=== PATIENT | female | born 1940 | race Caucasian/White ===

== ENCOUNTER 2020-03-24 13:17 | Inpatient (IN) | payer MEDICARE, OTHER ==
[~2020-03-24] VITALS: Ht 170.2 cm; Wt 79.0 kg
[~2020-03-24 13:17] MED LIST: ASPIRIN 81M81 MG/TA2 PO; LANTUS100 U/ML SQ; LEVEMIR100 U/ML SQ; MAG-AL LIQUID 230 ML PO; MELATIN 3 MG-11 TAB PO; NORCO 325 MG-51 TAB PO; NOVOLOG 100U100 U/M1 SQ; TYLENOL 325MG325 MG PO; ULTRAM 50MG TAB50 MG PO
--- NOTE | 2020-03-24 14:50 | NUR ---
Admitted to [facility] from acute care. Left arm in sling. Left hand edematous. Denied pain. Left arm elevated on pillow.
[2020-03-24 16:57] VITALS: BP 130/56; PULSE 73; TEMP 97.8
--- NOTE | 2020-03-24 18:30 | NUR ---
No complaints. O2 on per nasal cannula.
--- NOTE | 2020-03-24 19:26 | NUR ---
PATIENT RESTING IN BED DURING CHANGE OF SHIFT REPORT RECEIVED FROM DAY SHIFT NURSE. BED ALARM ON. PATIENT WANTING TO HAVE GOWN CHANGE LATER, AGREED TO TAKE TYLENOL WITH BED TIME MEDS. NO OTHER NEEDS REPORTED.
--- NOTE | 2020-03-24 20:00 | NUR ---
DECREASED ROM/STRENGTH LUE R/T SX, KAROL DRSG INTACT. PATIENT UP WITH ASST WITH GAIT BELT/DAYSI WALKER TO R HAND, MOD TO MAX ASSIST WITH SIT TO STAND REPOSITIONING. OBSERVED GAIT SLOW WITH SOME LLE DELAY DUE TO PAIN WITH MOVEMENT/FX L PELVIS. PATIENT REPORTS FATIGUE WITH EXERTION AT THIS TIME. BED ALARM ON WHEN IN BED.
--- NOTE | 2020-03-25 01:27 | NUR ---
CONFIRMED WITH SAM ODOM ORDERS FOR INSULINS AND VTE PROPHYLAXIS, ORDER CHANGES PUT IN BY PROVIDER WITH NO ADDITIONAL PATIENT RELATED CONCERNS REPORTED TO PROVIDER.
--- NOTE | 2020-03-25 03:44 | NUR ---
PATIENT SLEEPING WITH EVEN NONLABORED BREATHING OBSERVED. BED ALARM ON.
[2020-03-25 05:14] VITALS: BP 138/37; PULSE 73; TEMP 98.9
--- NOTE | 2020-03-25 07:14 | NUR ---
PATIENT IN BED EATING BREAKFAST DURING CHANGE OF SHIFT REPORT GIVEN TO DAY SHIFT NURSEEVON. BED ALARM ON.
--- NOTE | 2020-03-25 14:16 | NUR ---
SW met with patient at her bedside. Patient reported that she lives in [place] alone, and that her care support is her son Luh, who lives in [place]. She reported that she did not know his phone number and that it is in her file. There was no phone number listed for her son in the computer, however may be in her paper file. There is a listing for her Gonzalo Rutherford [phone]. Patient rpeorted that she uses a walker and a wheelchair and that her PCP is Dr. Tiwari, with an upcoming appointment on March 28, until her accident. Patient reported that she gets her medications from [facility], and that it was at the hospital where she fell. Patient may be interest in home health. SW will follow up to determine course of action.
[2020-03-25 16:04] VITALS: BP 146/60; PULSE 70; TEMP 98.8
--- NOTE | 2020-03-25 18:23 | NUR ---
CHANGE OF SHIFT REPORT RECEIVED FROM DAY SHIFT NURSE. BED ALARM ON.
--- NOTE | 2020-03-25 19:41 | NUR ---
PATIENT STATED SHE HAD LARGE BM PRIOR TO GOING TO PT DEPT.
--- NOTE | 2020-03-25 19:50 | NUR ---
DECREASED ROM/STRENGTH L ELBOW/LUE D/T SURGERY, IN SPLINT/KAROL DRSG THAT IS INTACT. LUE IN SLING, DENIES NUMBNESS/TINGLING TO EXTREMITIES. REPORT NO PAIN AT THIS TIME. ALSO REPORT STILL HAS PAIN TO INNER UPPER L THIGH ARE WITH WEIGHT BEARING MOVEMENT.
--- NOTE | 2020-03-26 02:41 | NUR ---
PATIENT SLEEPING, OBSERVED BREATHING EVEN AND NONLABORED, 02 CONTINUES PER NC, BED ALARM ON.
[2020-03-26 05:20] VITALS: BP 143/49; PULSE 66; TEMP 98
[2020-03-26 06:58] LABS: BASO # 0.1 (0.0-0.2); BASO % 0.4 % (0.0-2.0); EOS # 0.3 (0.0-0.7); EOS % 2.4 % (0-4.0); GRAN # 8.1 (1.4-6.5); GRAN % 68.7 % (42.2-75.2); HEMOGLOBIN 10.7 g/dl (12.5-16.0); LYMPH # 2.3 (1.2-3.4); LYMPH % 19.7 % (20.0-51.0); MEAN CELL VOLUME 88 fl (80.0-100.0); MEAN CORPUSCULAR HEMOGLOBIN 29 pg (27.0-31.0); MEAN CORPUSCULAR HGB CONC 33 g/dl (33.0-37.0); MEAN PLATELET VOLUME 9.7 fl (7.4-10.4); MONO % 8.5 % (1.7-9.3); PLATELET COUNT 270 K/mm3 (130-400); RED BLOOD COUNT 3.73 M/mm3 (4.10-5.30); REDCELL DISTRIBUTION WIDTH-CV 12.8 % (11.5-14.5)
[2020-03-26 07:00] LABS: HEMATOCRIT 32.8 % (37.0-47.0)
[2020-03-26 07:14] LABS: CREATININE, serum 0.69 (0.52-1.25); POTASSIUM 4.4 mmol/L (3.4-5.0)
--- NOTE | 2020-03-26 07:40 | NUR ---
CHANGE OF SHIFT REPORT GIVEN TO DAY SHIFT NURSES, ARSLAN. BED ALARM ON. O2 CONTINUES PER NC.
--- NOTE | 2020-03-26 14:56 | NUR ---
Cashier Host/Hostess followed up with patient from the weekend. Patient reports things went okay. SW reviewed IM form with patient who verbalized understanding and gave SW permission to sign on her behalf. SW placed form in chart and provided copy to patient. SW will continue to follow.
[2020-03-26 16:11] VITALS: BP 124/44; PULSE 76; TEMP 97.9
--- NOTE | 2020-03-26 18:33 | NUR ---
PATIENT RECEIVES SCHEDULED TRAMADOL AND DID WELL WITH THERAPY TODAY. IN THE AFTERNOON PATIENT REQUESTED PRN NORCO FOR PAIN OF 10/10 WHILE WALKING. THE MEDICATION WAS EFFECTIVE FOR PATIENT'S PAIN. PATIENT DOING WELL, IN BED RESTING AT BEDSIDE SHIFT REPORT.
--- NOTE | 2020-03-26 19:28 | NUR ---
Received report from Bree RN's. Pt currently lying in bed and has her call light within reach. Pt bed is also in lowest position.
--- NOTE | 2020-03-26 23:42 | NUR ---
Pt has ambulated to the restroom once . Pt ambulated well, she took it really slow. Pt was a one assist with the gait belt and walker. Pt has no complained of any pain as she transferred. Pt is currently back in bed and has her call ligth within reach and her bed is in lowest position and her alarm is on . She did have some sugar free pudding and some crackers before bed.
[2020-03-27 04:33] VITALS: BP 134/47; PULSE 70; TEMP 98.5
--- NOTE | 2020-03-27 07:21 | NUR ---
Report was given to Deloris RN's. Pt was sitting up in bed and getting ready to eat breakfast. Pt blood glucose level this morning was at 76 so pt was given leena crackers and orange juice until her breakfast tray came. Pt has her call light within reach and her bed is in lowest position.
--- NOTE | 2020-03-27 09:07 | NUR ---
Patient resting in bed, eating breakfast and denies pain this am. Did help patient to restroom, steady gait and no problems with bowel or bladder.
--- NOTE | 2020-03-27 13:21 | NUR ---
Admission QIM scores were reviewed by the team. Code of 4 chosen for oral hygiene was determined by team discussion to be the most usual performance before interventions for this patient during the assessment period. Code of 4 chosen for toilet hygiene was determined by team discussion to be the most usual performance for this patient during the assessment period. Code of 3 chosen for toilet transfers was determined by team discussion to be the most usual performance for this patient during the assessment period. Code of 5 chosen for rolling left to right was determined by team discussion to be the most usual performance for this patient during the assessment period. Code of 3 chosen for sit to lying was determined by team discussion to be the most usual performance for this patient during the assessment period. Code of 3 chosen for lying to sitting on side of bed was determined by team discussion to be the most usual performance for this patient during the assessment period. Code of 3 for chair/bed to chair transfers was determined by team discussion to be the most usual performance for this patient during the assessment period. Code of 88 chosen for walk 150 feet was determined by team discussion to be the most usual performance for this patient during the assessment period.--Ana Story, PD
[2020-03-27 17:47] VITALS: BP 173/58; PULSE 77; TEMP 99.2
--- NOTE | 2020-03-27 19:11 | NUR ---
PATIENT REQUESTING PAIN MEDICINE AT BEDSIDE SHIFT REPORT. EVELYN IS GETTING THIS FOR HER. BED ALARM ON, BED IN LOW, AND CALL LIGHT WITHIN REACH AT REPORT.
--- NOTE | 2020-03-27 19:40 | NUR ---
CHANGE OF SHIFT REPORT RECEIVED FROM DAY SHIFT NURSE. BED ALARM ON.
--- NOTE | 2020-03-27 20:00 | NUR ---
DECREASED ROM/STRENGTH TO L ELBOW D/T SURGERY AND KAROL/SPLINT DRSG. ABLE TO WIGGLE L HAND FINGERS ON COMMAND. DENIES NUMBNESS/TINGLING TO BUE AT THIS TIME. ALYCE HAND MOLD STAMPER AND REPAIRER EQUAL, PATIENT ENCOURAGED TO CONTINUE L HAND EXERCISES. SLING TO LUE IN PLACE, PATIENT CONTINUES TO KEEP LUE ELEVATED ABOVE HEART LEVEL AT ALL TIMES. BED ALARM ON.
[2020-03-28 05:56] VITALS: BP 124/89; PULSE 65; TEMP 98.4
--- NOTE | 2020-03-28 07:24 | NUR ---
CHANGE OF SHIFT REPORT GIVEN TO DAY SHIFT NURSEARLETTE. BED ALARM ON.
--- NOTE | 2020-03-28 07:50 | NUR ---
Patient resting in bed, call light in reach and bed alarm set. Patient denies questions at this time.
--- NOTE | 2020-03-28 09:09 | NUR ---
Patient returning from PT and is a SBA with using walker and gait belt. Patient reports pain meds are effective. Will continue to monitor.
--- NOTE | 2020-03-28 11:18 | NUR ---
Patient was taken off oxygen this morning to go to therapy. She has been off it since 8:15 this morning and her current O2 is now 98% on Room Air. Will report to Dr. Iniguez this afternoon.
--- NOTE | 2020-03-28 16:09 | NUR ---
Rn Teacher contacted patient's son, Carmine to schedule family meeting for 03/30/20 @ 1300. SW will contact Carmine by phone at time of meeting. SW met with patient to review and provide copy of team conference notes. SW also provided date and time of family meeting. Patient is tearful and states she is so happy that her son made transportation arrangements for her to get home. CED advised patient that she spoke with [facility] and was advised that they can deliver medications to patient's home. CED will follow up again with [facility] closer to discharge. SW to also follow up with patient on referral to Home Health, which is being recommended. Patient reports she will be agreeable to services at discharge. SW will continue to follow.
[2020-03-28 17:55] VITALS: BP 129/50; PULSE 81; TEMP 98
--- NOTE | 2020-03-28 19:56 | NUR ---
Patient attended all therapies today, was given pain meds this morning that were effective prior to therapies. Patient was off oxygen the entire day with lowest O2 reading 90% with RT this afternoon. Patient was independent with her meals. Patient's bruise to her left inner thigh continues to improve. Reported off to night nurse.
--- NOTE | 2020-03-28 20:00 | NUR ---
DECREASED ROM/STRENGTH TO L ELBOW D/T ELBOW SURGERY. DENIES NUMBNESS/TINGLING TO EXTREMITIES AT THIS TIME. DENIES CHEST PAIN/SHORTNESS OF BREATHE AT THIS TIME. BED ALARM ON.
[2020-03-29 04:31] VITALS: BP 144/41; PULSE 63; TEMP 97.9
--- NOTE | 2020-03-29 06:58 | NUR ---
CHANGE OF SHIFT REPORT GIVEN TO DAY SHIFT NURSEJOSE A. BED ALARM ON.
--- NOTE | 2020-03-29 08:24 | NUR ---
Assessment completed, alert/oriented, vital signs have been stable, patient left arm/ elbow discomfort is minimal and scheduled Ultram given, icision site dressing is C/D/I and looks good, encouraging LUE ROM and exercise, some small bruises and abrasions noted from fall but no serious skin issues noted, heart RRR/ distal pulses are palapble, Lungs CTA, patient has eaten breakfast and is now working with PT
[2020-03-29 17:33] VITALS: BP 128/43; PULSE 79; TEMP 98.2
--- NOTE | 2020-03-29 21:00 | NUR ---
PT RESTING IN BED. CHEERFUL MOOD. A&O X4. GOOD SENSATION AND MOVEMENT OF LT HAND. ELEVATED ON PILLOW. DENIES NEED FOR PAIN MEDICATION. RT REPORTED O2 AT 1L NEEDED FOR O2 SAT 88%. ENC I.S. USE. NEEDS MUCH CUING FOR PROPER USE. REFUSES SCD'S . ACCUCHECK 171. SEE MAR FOR SSI. CALL LIGHT IN REACH. BED ALARM SET.
--- NOTE | 2020-03-30 04:40 | NUR ---
ASSISTED TO BR W/QUAD CANE. VOIDED W/O DIFFICULTY. BACK TO BED. PT REPORTS FEELING HYPOGLYCEMIC. CHECKED ACCUCHECK-63. PROVIDED OJ. WILL CONTINUE TO MONITOR.
--- NOTE | 2020-03-30 05:00 | NUR ---
ACCUCHECK NOW 92. NO FURTHER COMPLAINTS.
[2020-03-30 05:03] VITALS: BP 120/41; PULSE 62; TEMP 98
--- NOTE | 2020-03-30 08:31 | NUR ---
HELPED PATIENT TO THE RESTROOM WITH MORNING ASSESS. PATIENT C/O PAIN 3/10 AND SCHEDULED TRAMADOL WAS GIVEN. PATIENT ATE BREAKFAST AND IS RESTING IN BED AWATING THERAPY.
--- NOTE | 2020-03-30 10:50 | NUR ---
GEOFFREY WITH OT MADE US AWARE THAT THE CAST IS FITTING MORE LOOSELY DUE TO A DECREASE IN SWELLING WITH THE PATIENT'S LEFT UPPER EXTREMITIY. DR. JAVED'S OFFICE WAS NOTIFIED AND AWAITING A RETURN CALL FOR CHANGES.
--- NOTE | 2020-03-30 11:11 | NUR ---
DR. JAVED'S NURSE CALLED BACK WITH DIRECTIONS TO TIGHTEN THE KAROL WRAP AROUND THE PLASTER ON RAUL'S ARM.
--- NOTE | 2020-03-30 13:14 | NUR ---
Fertilizer Loader attended a family meeting for the patient. Present were Ana, IPR Director, PT/OT and the patient's son, Carmine was on speaker phone. Ana began with the purpose of the meeting. PT/OT discussed patient progress. The patient's anticipated discharge date is 04/04. The patient is to return home with [facility]. CED presented Medicare.gov's list of [employer] in the [place] area. The patient would like the weekend to make a choice. All questions and concerns were addressed. Will continue to monitor.
[2020-03-30 17:09] VITALS: BP 128/46; PULSE 70; TEMP 98.4
--- NOTE | 2020-03-30 17:45 | NUR ---
REWRAPPED PATIENT'S KAROL WRAP OVER THIER PLASTER CAST. PATIENT DID C/O PAIN BEFORE DINNER AND RECEIVED A PRN NORCO. PATIENT DOING WELL NOW AND ENJOYING DINNER IN BED. BED IN LOW, BED ALARM ON, CALL LIGHT WITHIN REACH.
--- NOTE | 2020-03-30 22:03 | NUR ---
PT CHEERFUL AND ORIENTED X4. O2 1L NC AT HS FOR LOW SAT. ENC USE OF I.S. LT ARM ELEVATED ON PILLOW. GOOD SENSATION AND WARMTH. MOVES FINGERS WELL. SEE MAR FOR PAIN MED GIVEN. PT C/O SOME DISCOMFORT AFTER KAROL WRAP WAS REDONE.
--- NOTE | 2020-03-31 00:20 | NUR ---
PT FEELING HYPOGLYCEMIC. ACCUCHECK 57. GAVE OJ X2. HAD LUAN CRACKERS AND PEANUTBUTTER FOR HS SNACK EARLIER TONIGHT. WILL CONTINUE TO MONITOR.
--- NOTE | 2020-03-31 02:00 | NUR ---
PT C/O LT ARM PAIN FROM TIGHT KAROL WRAP. LOOSENED THE KAROL WRAP. SEE MAR FOR PAIN MEDICATION GIVEN. PT DECLINED ICE PACK.
[2020-03-31 06:03] VITALS: BP 143/51; PULSE 62; TEMP 98.2
--- NOTE | 2020-03-31 09:00 | NUR ---
UPON ENTRY TO THE ROOM THE PATIENT IS STANDING WITH RECYCLING OPERATOR GETTING READY FOR THERAPY. PATIENT IS RATING HER LEFT ARM PAIN A 3/10 ON A 0-10 SCALE AND DESCRIBES IT A CONSTANT BURNING PAIN. PATIENT GIVEN SCHEDULED PAIN MEDICATION WITH MORNING MEDS. SHIFT ASSESSMENT COMPLETE AT THIS TIME. LUE SPLINT/KAROL WRAP DRESSING IS CD&I. SLING IN PLACE. CAP REFILL <3 SECONDS. CMS INTACT. NO SWELLING TO HAND NOTED. PATIENT STATES THAT SHE HAS A HEAT RASH ON HER BACK. PIMPLE LIKE BUMPS NOTED OVER LEFT SIDE OF BACK. SKIN INTACT. LOTION APPLIED PER PATIENT REQUEST. CALL LIGHT WITHIN REACH. PATIENT DENIES ANY OTHER NEEDS AT THIS TIME.
[2020-03-31 17:32] VITALS: BP 152/42; PULSE 72; TEMP 98.1
--- NOTE | 2020-03-31 21:00 | NUR ---
PT RESTING IN BED. WATCHING TV. LT ARM SPLINT. FINGERS WARM TO TOUCH. DENIES NUMBNESS OR TINGLING. SEE MAR FOR PAIN MEDS GIVEN. REFUSED ICE PACK. ASSIST UP TO BR WITH QUAD CANE. VOIDING W/O DIFFICULTY. CALL LIGHT IN REACH. BED ALARM SET.
--- NOTE | 2020-04-01 05:19 | NUR ---
PT SLEEPING NOW. HAVING PAIN ISSUES ON LT ELBOW WHEN SPLINT IS POSSIBLY RUBBING. GAVE PAIN MED EARLIER.SLING IN PLACE AND ARM ELEVATED ON PILLOWS
[2020-04-01 05:37] VITALS: BP 155/55; PULSE 66; TEMP 98
--- NOTE | 2020-04-01 08:29 | NUR ---
PATIENT SLEEPING IN BED AT BEDSIDE SHIFT REPORT. PATIENT'S BLOOD SUGAR WAS RECHECKED THIS AM AND WAS HIGH SO SHE RECEIVED BOTH DOSES OF NOVOLOG. DISCUSSED WITH PATIENT ABOUT SAVING A BANANA FOR SNACK IN THE ADRIANE TO AVOID LOW BLOOD SUGARS IN THE AM.
[2020-04-01 17:25] VITALS: BP 124/43; PULSE 77; TEMP 98.4
--- NOTE | 2020-04-01 19:02 | NUR ---
PATIENT TOOK PRN TYLENOL THIS AFTERNOON. WALKED SEVERAL LAPS AROUND WITH THIS NURSE. BLOOD SUGARS HAVE BEEN HIGH AND LOW TODAY. DISCUSSED SNACK FOR HS WITH ONCOMING NURSE. PATIENT RESTING IN BED AT TIME OF BEDSIDE SHIFT REPORT. BED IN LOW, CALL LIGHT WITHIN REACH, AND BED ALARM ON.
--- NOTE | 2020-04-01 21:00 | NUR ---
PT RESTING IN BED. HUMOROUS. ORIENTED X4. LT ARM ELEVATED ON PILLOW. NO NUMBNESS OR TINGLING. MOVES FINGERS FREELY. DENIES NEEDS AT THIS TIME.
[2020-04-02 06:16] VITALS: BP 150/45; PULSE 64; TEMP 97.7
--- NOTE | 2020-04-02 08:31 | NUR ---
PATIENT RESTINGIN BED AT BEDSIDE SHIFT REPORT. C/O INCREASING PAIN IN LEFT ELBOW AND A SENSATION OF COLD WATER RUNNING ON ELBOW. SCHEDULED TRAMADOL AND PRN TYLENOL WERE GIVEN FOR PAIN BEFORE THERAPY.
--- NOTE | 2020-04-02 08:56 | NUR ---
Initial visit; Patient thanked Mangle Catcher for looking in on her and offering God's blessings and keeping her in Mangle Catcher's prayers.
--- NOTE | 2020-04-02 09:47 | NUR ---
PATIENT C/O DIZZINESS, BLOOD PRESSURE WAS LOW 108/53. DR. SONG UPDATED NO ODERS AT THIS TIME. WILL CONTINUE TO MONITOR. BLOOD SUGAR 237 AT TIME OF ASSES..
[2020-04-02 09:51] VITALS: BP 108/53
[2020-04-02 10:48] LABS: BASO % 0.4 % (0.0-2.0); EOS # 0.2 (0.0-0.7); EOS % 2.3 % (0-4.0); GRAN # 6.5 (1.4-6.5); GRAN % 67.1 % (42.2-75.2); HEMATOCRIT 35.1 % (37.0-47.0); HEMOGLOBIN 11.1 g/dl (12.5-16.0); LYMPH # 2.1 (1.2-3.4); LYMPH % 21.5 % (20.0-51.0); MEAN CELL VOLUME 90 fl (80.0-100.0); MEAN CORPUSCULAR HEMOGLOBIN 28 pg (27.0-31.0); MEAN CORPUSCULAR HGB CONC 32 g/dl (33.0-37.0); MEAN PLATELET VOLUME 9.2 fl (7.4-10.4); MONO # 0.8 (0.1-0.6); MONO % 8.4 % (1.7-9.3); PLATELET COUNT 420 K/mm3 (130-400); RED BLOOD COUNT 3.91 M/mm3 (4.10-5.30); REDCELL DISTRIBUTION WIDTH-CV 12.9 % (11.5-14.5)
[2020-04-02 10:56] LABS: CALCIUM 9.2 mg/dL (8.4-10.2); CREATININE, serum 0.93 (0.52-1.25); POTASSIUM 4.6 mmol/L (3.4-5.0)
--- NOTE | 2020-04-02 12:54 | NUR ---
DR. JAVED'S OFFICE RETURNED CALL ABOUT INCREASED PAIN AND SENSATION OF DRIPPING WATER. WAS TOLD LONG THEIR IS NO DRAINAGE ON THE SPLINT OR WRAP, NO SWELLING, TINGLING/NUMBNESS, DISCOLORATION OR OTHER PROBLEMS TO CONTINUE TO MONITOR. PATIENT WILL F/U WITH DR. JAVED ON 04/04 AT 2:00PM.
--- NOTE | 2020-04-02 14:32 | NUR ---
Order Builder Loader followed up with patient to discuss discharge plan. Patient selected [facility] and would also like pierce walker order sent to [facility]. CED faxed referral to Noa at [facility] who will review the referral and follow up with CED. CED faxed order for Pierce Walker to [facility] and was advised they could either deliver walker or patient could pick it up. CED will follow up with patient on preference. Patient expressed some concern about picking up her vehicle from [facility]. Patient states she would like SW to contact [facility] to let them know when she will picked edge sewing machine operator vehicle so they don't think it's being stolen. CED will follow up with patient tomorrow to confirm when she will have the vehicle picked up.
[2020-04-02 15:50] VITALS: BP 137/46; PULSE 63; TEMP 98.7
--- NOTE | 2020-04-02 18:04 | NUR ---
ON DAY OF DISCHARGE 04/04 RAUL NEEDS TO BE DISCHARGED FIRST. SHE HAS AN APPOINTMENT WITH DR. JAVED AT 2:00PM. HER SON LIVES IN [place] AND HIS FRIEND MARIFER IS HER ONLY RIDE. HE WILL PICK HER UP AT 1:30 FROM HERE AND TAKE HER TO THIS APPOINTMENT AND THEN TAKE HER HOME TO [place]. SON'S NAME IS TIFFANIE. PATIENT'S BLOOD SUGARS HAVE CONTINUED TO GO UP AND DOWN AND LINA IS CONCERNED THEY ARE NOT LIKE AT HOME. PATIENT MAD MOD-I IN ROOM WITH DAYSI WALKER TODAY. TOLERATING WELL, ENCOURAGED TO STILL CALL WHEN NECESSARY.
[2020-04-03 05:54] VITALS: BP 142/53; PULSE 66; TEMP 99
--- NOTE | 2020-04-03 07:03 | NUR ---
PATIENT RESTING IN BED DURING CHANGE OF SHIFT REPORT GIVEN TO DAY SHIFT NURSEBRIA. PATIENT UP INDEPENDENTLY IN ROOM WITH NO PROBLEMS.
--- NOTE | 2020-04-03 14:03 | NUR ---
Patient ambulating in trujillo with PT. Steady gait with hemiwalker.
[2020-04-03 16:27] VITALS: BP 139/45; PULSE 65; TEMP 98.4
--- NOTE | 2020-04-03 16:44 | NUR ---
Assessment Analyst met with patient to discuss plan for tomorrow. Patient states her son's friend, Larry is picking her up and can take her to olive picker her medications at [place]. Patient does not want to sign up for [facility], which can mail medications to her home. [facility] states [facility] and did not like it. Patient has eddi walker ready at [facility]. Patient would like it delivered to her home, but Larry will need to pick it up so she can go into the pharmacy to olive picker her new medication tomorrow. SW contacted patient's son, Carmine to provide update and obtain Larry's phone number. CED contacted Larry at [phone] and left a message. CED read IM form aloud to patient who verbalized understanding and gave SW permission to sign on her behalf. CED placed form in chart and provided copy to patient. SW will continue to follow.
--- NOTE | 2020-04-03 18:19 | NUR ---
Patient has done well throughout the day. Minimal needs. LUE in sling throughout the day. Up independently in room. Denies pain throughout the day. Denies further needs at this time. Will report off to retail shift leader.
--- NOTE | 2020-04-04 00:28 | NUR ---
PATIENT RESTING QUIETLY IN BED, SLEEPING, DOES NOT WAKE WHEN DOOR TO ROOM IS OPENED BY STAFF. ANTICIPATES DISCHARGE LATER TODAY AFTER LUNCH, HAS F/U APPT WITH ORTHO PROVIDER AROUND 1400.
[2020-04-04 04:38] VITALS: BP 161/53; PULSE 9; TEMP 98.3
--- NOTE | 2020-04-04 07:15 | NUR ---
CHANGE OF SHIFT REPORT GIVEN TO DAY SHIFT NURSEARLETTE. PATIENT UP INDEPENDENTLY IN ROOM WITH NO REPORTED NEEDS OR C/O.
--- NOTE | 2020-04-04 08:20 | NUR ---
Patient resting in recliner, call lightin reach and Mod I in room with walker. Discussed discharge planning for the day.
--- NOTE | 2020-04-04 08:28 | NUR ---
Patient resting in recliner, discussing discharge. Patient checks her blood sugars independently and has given herself insulin injections for the past 15 years.
[2020-04-04] MEDS ORDERED: NORCO 325 MG-51 TAB PO (09:56)
--- NOTE | 2020-04-04 13:19 | NUR ---
Follow-up visit; Patient and Stamping Die Try Out Worker had a wonderful visit before patient was to be discharged. Stamping Die Try Out Worker wished Leeanna well and offered her God's blessings.
--- NOTE | 2020-04-04 13:35 | NUR ---
Patient Health Summary, Discharge Summary, and Home Meds printed and reviewed with patient. Stressed importance of follow up appointments. Reviewed home meds and provided printed prescriptions for [place]. Belongings gathered by JAIME/Dahlia including bracelet, 2 rings, purse/wallet, phone, assistant teacher, clothing and shoes. Patient transported via wheelchair by KENNY/Jerri and seatbelted for ride home with friend. Patient denied questions. This nurse reminded patient of her 2:[address] Marmolejo's office and she was going to head there upon leaving hospital.
--- NOTE | 2020-04-04 14:18 | NUR ---
Interior Paneler spoke with patient's friend, Larry who will be picking her up this afternoon. Larry advised that he would be able to picker / packer patient's eddi walker from [facility] prior to picking up patient. Larry advised he has known patient's son for many years and is happy to help patient get home. CED met with patient to provide update and check in. Patient to discharge home with Home Health PT/OT. CED contacted Milady at [facility] and faxed discharge orders. No additional needs at this time.
--- NOTE | 2020-04-05 16:57 | NUR ---
Valet Manager was advised by JAIME Velazquez that patient missed her appointment with Dr. Marmolejo yesterday. CED contacted Milady at [facility] who advised they attempted contact with patient but patient declined services as she only wants rides to appointments. CED provided patient's son's phone number to Milady who advised she will follow up with patient next week to again try to start services.
== END 2020-04-04 13:35 | disposition home health service (06) | DRG 560 ==
PROVIDERS: ADMIT Internal Medicine
DX: S52.022D Displaced fracture of olecranon process without intraarticular extension of left ulna, subsequent encounter for closed fracture with routine healing (principal); E87.3 Alkalosis; S32.592D Other specified fracture of left pubis, subsequent encounter for fracture with routine healing; D47.3 Essential (hemorrhagic) thrombocythemia; E11.9 Type 2 diabetes mellitus without complications; R00.1 Bradycardia, unspecified; W10.8XXD Fall (on) (from) other stairs and steps, subsequent encounter; D72.829 Elevated white blood cell count, unspecified; Z79.82 Long term (current) use of aspirin; Z79.4 Long term (current) use of insulin; Z79.891 Long term (current) use of opiate analgesic
CPT/HCPCS: 99222-AI; 99231-AI; 99232-AI; 99239; J1650; J1815